=== PATIENT | male | born 1980 | race Hispanic/Latino ===

== ENCOUNTER 2017-09-30 21:55 | Emergency (ER) | payer OTHER ==
[~2017-09-30] VITALS: Ht 167.6 cm; Wt 84.8 kg
[~2017-09-30 21:55] MED LIST: CYCLOBENZAPRINE10 MG PO; MELOXICAM15 MG PO
[2017-10-01] MEDS ORDERED: ZOFRAN ODT4 MG PO (00:30)
== END 2017-10-01 00:55 | disposition home or self-care (01) ==
LOC: ED 21:55
DX: K70.10 Alcoholic hepatitis without ascites (principal); F10.129 Alcohol abuse with intoxication, unspecified; Y90.8 Blood alcohol level of 240 mg/100 ml or more
CPT/HCPCS: 80053; 85025; 96374; 96375; 99283; G0480; J2405; J7030

== ENCOUNTER 2017-11-12 16:54 | Emergency (ER) | payer OTHER ==
[~2017-11-12] VITALS: Ht 167.6 cm; Wt 84.8 kg
[~2017-11-12 16:54] MED LIST changes: +ZOFRAN ODT4 MG PO
[2017-11-12] MEDS ORDERED: ONDANSETRON ODT8 MG PO (17:31)
== END 2017-11-12 17:40 | disposition home or self-care (01) ==
LOC: ED 16:54
DX: F10.129 Alcohol abuse with intoxication, unspecified (principal)
CPT/HCPCS: 99283

== ENCOUNTER 2019-05-27 16:14 | Emergency (ER) | payer OTHER ==
[~2019-05-27] VITALS: Ht 167.6 cm; Wt 93.4 kg
[~2019-05-27 16:14] MED LIST changes: +ONDANSETRON ODT8 MG PO
== END 2019-05-27 17:36 | disposition home or self-care (01) ==
LOC: ED 16:14
DX: K64.4 Residual hemorrhoidal skin tags (principal)

== ENCOUNTER 2019-11-02 20:47 | Emergency (ER) | payer OTHER ==
[~2019-11-02] VITALS: Ht 167.6 cm; Wt 93.4 kg
[2019-11-02] MEDS ORDERED: CYCLOBENZAPRINE10 MG PO (23:07)
== END 2019-11-02 23:16 | disposition home or self-care (01) ==
LOC: ED 20:47
DX: G89.29 Other chronic pain (principal); M54.5 Low back pain; R51 Headache; R53.83 Other fatigue
CPT/HCPCS: 99283; C9803; U0002

== ENCOUNTER 2020-08-24 20:49 | Emergency (ER) | payer OTHER ==
[~2020-08-24] VITALS: Ht 167.6 cm; Wt 93.4 kg
== END 2020-08-24 22:33 | disposition home or self-care (01) ==
LOC: ED 20:49
DX: H10.9 Unspecified conjunctivitis (principal)
CPT/HCPCS: 99283